=== PATIENT | female | born 1980 | race Caucasian/White ===

== ENCOUNTER 2024-05-16 20:15 | Emergency (ER) | payer BC, SELFPAY ==
[2024-05-16 20:16] VITALS: BP 147/85; PULSE 91; RESP 18; TEMP 36.9; O2SAT 95; BMI 20.9
[2024-05-16 20:23] VITALS: BP 147/87; PULSE 100; RESP 18; TEMP 36.9; O2SAT 96
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
[2024-05-16 21:00] LABS: Alcohol Level 298 mg/dL (0-10)
[2024-05-16] MEDS: sodium chloride 0.9% 1,000 ML 999 ML IV (21:01)
[2024-05-16 21:02] VITALS: BP 106/81; PULSE 97; RESP 18; O2SAT 96
[2024-05-16 22:30] VITALS: BP 128/77; PULSE 98; RESP 18; O2SAT 94
== END 2024-05-16 22:27 | disposition home or self-care (01) ==
PROVIDERS: Emergency Provider General Practice; PCP Family Medicine Adult Medicine
DX: S80.211A Abrasion, right knee, initial encounter (principal); F10.920 Alcohol use, unspecified with intoxication, uncomplicated; Y90.8 Blood alcohol level of 240 mg/100 ml or more; V89.2XXA Person injured in unspecified motor-vehicle accident, traffic, initial encounter
CPT/HCPCS: 70450; 80307; 96360; 99284; J7030

== ENCOUNTER → 2024-06-20 09:10 | Outpatient (BNVA) | payer BC, SELFPAY | PROVIDERS: PCP Family Medicine Adult Medicine; Visit Provider Family Medicine Adult Medicine | DX: Z00.00 Encounter for general adult medical examination without abnormal findings (principal); F41.1 Generalized anxiety disorder; F43.0 Acute stress reaction; F51.05 Insomnia due to other mental disorder; F40.9 Phobic anxiety disorder, unspecified | CPT/HCPCS: 80053; 80061; 84443; 85025 ==

== ENCOUNTER 2024-08-15 09:53 | Emergency (ER) | payer BC, SELFPAY ==
[2024-08-15 10:05] VITALS: BP 136/91; PULSE 84; RESP 16; TEMP 36.7; O2SAT 96; BMI 23.3
--- NOTE | 2024-08-15 10:28 | W.ED.WOUNDLC ---
HPI - Wound/Laceration General: Chief Complaint: Wound/Laceration Stated Complaint: lac on lip Time Seen by Provider: 08/15/24 10:28 Source: patient Mode of arrival: ambulatory Limitations: no limitations History of Present Illness: Patient is a 44-year-old female presents to ED today for evaluation of an upper lip laceration that she sustained around 3 AM this morning when she was accidentally head butted by a dog. Last tetanus is up-to-date. Onset (ago): hour(s) Location: face (lip) Place: home Patient tetanus UTD: Yes Context: accidental Associated symptoms: Reports no associated symptoms Related Data Home Medications Medication Instructions Recorded Confirmed doxepin 50 mg capsule 50 mg PO QPM PRN insomnia 08/15/24 08/15/24 Previous Rx's Medication Instructions Recorded buspirone 5 mg tablet 5 mg PO BID PRN anxiety #180 tabs 06/20/24 Allergies Allergy/AdvReac Type Severity Reaction Status Date / Time No Known Allergies Allergy Unverified 06/20/24 09:15 Review of Systems ENMT: Reports: other (lip laceration) Skin/Breast: Reports: other (lip laceration) [facility] ED PFSH: Medical History Encounter for health maintenance examination Anxiety as acute reaction to exceptional stress Insomnia due to anxiety and fear No pertinent past medical history neghx:htn,dm,thyroid,dvt/pe PCP: -- Surgical History Hx of breast implants, bilateral Family History Mother Rheumatoid arthritis Brain tumor Father No problems noted. Denies family history of Colon cancer Ovarian cancer Prostate cancer Diabetes Heart disease Hyperlipidemia Breast cancer Hypertension Thyroid disease Stroke Social History Smoking and tobacco/nicotine status: never used tobacco/nicotine Alcohol intake: current Alcohol intake frequency: few times a week Alcohol type: other Substance/Drug Use: never Physical Exam Const: COMMON NORMALS: no acute distress, average body habitus, no limitations, healthy appearing, alert and well nourished ORIENTATION/CONSCIOUSNESS: Yes awake, Yes oriented to person, Yes oriented to place and Yes oriented to time HENMT: COMMON NORMALS: normocephalic and atraumatic HEAD & SCALP: normal to inspection, normocephalic and atraumatic FACE & SINUS: laceration (L upper lip) and other (lip laceration) NOSE IMAGE: 1. 1.25cm lip laceration MOUTH: Normal oral and palatal mucosa present, tongue normal and Normal salivary glands and ducts present TEETH & GINGIVA: Yes fair dentition Neuro: SENSORIUM/ORIENTATION: Yes alert, Yes oriented to person, Yes oriented to place and Yes oriented to time Procedures Laceration Laceration 1: Site: lip Side (If applicable): left Size (cm): 1.25 Description: linear Depth: simple, single layer Local Anesthetic: lidocaine 1% Amount of anesthesia used (mL): 1.0 Pre-repair: wound explored and irrigated extensively Skin layer closed with: other (chromic gut) Size (cm): 5-0 Number of sutures: 3 Technique: simple, interrupted Course Vital Signs: Vital signs: Vital Signs Temperature 98.1 F 08/15/24 10:05 Pulse Rate 84 08/15/24 10:05 Respiratory Rate 16 08/15/24 10:05 Blood Pressure 136/91 08/15/24 10:05 Pulse Oximetry 96 08/15/24 10:05 Oxygen Delivery Me thod Room Air 08/15/24 10:05 MDM - Wound/Laceration Medical Decision Making Wound was copiously irrigated and repaired as documented. Good cosmetic outcome achieved. Wound care/infection precautions/suture removal discussed. Differential Diagnosis Likely laceration Medical Records I reviewed the patient's medical records. No radiology studies performed this visit Discharge Plan Discharge Patient Disposition: Home Clinical Impression: Laceration of lip Qualifiers: Encounter type: initial encounter Qualified Code(s): S01.511A - Laceration without foreign body of lip, initial encounter Condition: Stable Prescriptions: No Action buspirone 5 mg tablet 5 mg PO BID PRN (Reason: anxiety) Qty: 180 1RF doxepin 50 mg capsule 50 mg PO QPM PRN (Reason: insomnia) Discharge Orders: Discharge ED (Routine); Ordered 08/15/24 Ordered By: Yeni Alves Referrals: Nomi Deras MD [Primary Care Provider] - Patient Instructions: Facial Laceration (ED) Activity Restrictions/Additional Instructions: Keep wound/laceration clean with warm soap and water twice daily. Monitor for signs of infection such as redness, swelling, increased pain, or drainage. Please seek medical re-evaluation if these occur. If you received sutures today these will need to be removed (unless you were told by the provider that they are absorbable). The provider should have discussed with you the length of time until removal-5 DAYS. Coding Level of Care Code ED Six Pack Packer for Kaitlynn Ruiz
[2024-08-15 11:26] VITALS: BP 127/76; PULSE 76; O2SAT 100
== END 2024-08-15 11:27 | disposition home or self-care (01) ==
PROVIDERS: Emergency Provider Physician Assistant; PCP Family Medicine Adult Medicine
DX: S01.511A Laceration without foreign body of lip, initial encounter (principal); W54.1XXA Struck by dog, initial encounter
CPT/HCPCS: 12011; 99282

== ENCOUNTER 2025-09-30 08:38 | Outpatient (CLI) | payer BC, SELFPAY ==
--- NOTE | 2025-09-30 08:43 | MM_ITS ---
WS: [id number] BILATERAL SCREENING DIGITAL BREAST MAMMOGRAPHY WITH ARIAN DISPLACEMENT VIEWS. CAD PERFORMED. HISTORY: ANNUAL SCREENING COMPARISON: None available. Bilateral craniocaudal and mediolateral oblique views are performed with tomosynthesis and SM. Arian displacement views in CC and MLO projection also performed. Breasts composition: The breasts are heterogeneously dense, which may obscure small masses. Bilateral breast implants are intact. No extravasation or collapse. Dense fibroglandular densities. No suspicious grouping of calcifications or mass. MM/MM scr BI tomosynthesis [id number] IMPRESSION: BI-RADS: 2 - Benign FOLLOW-UP: 1 Year Follow-up
== END 2025-09-30 08:39 | disposition home or self-care (01) ==
PROVIDERS: PCP Family Medicine Adult Medicine; Visit Provider Family Medicine
DX: Z12.31 Encounter for screening mammogram for malignant neoplasm of breast (principal); R92.333 Mammographic heterogeneous density, bilateral breasts; R92.323 Mammographic fibroglandular density, bilateral breasts; Z98.82 Breast implant status
CPT/HCPCS: 77063; 77067